=== PATIENT | female | born 1965 | race Caucasian/White ===

== ENCOUNTER 2016-12-07 07:31 | Day surgery (SDC) | payer BC ==
[2016-11-28 16:02] VITALS: BMI 27.1
--- OUTSIDE RECORDS SUMMARY | 2016-12-07 07:34 | XMS | Clinical Summary ---
:1965 Author Organization [facility] Address [address] [place] [address] Phone Care Team Providers Name Role Phone , Primary Care Provider Unavailable Allergies Not on File Current Medications Not on file Active Problems Not on file Social History Tobacco Use Types Packs/Day Years Used Date Never Assessed Sex Assigned at Date Recorded Not on file Last Filed Vital Signs Not on file Plan of Treatment Not on file Results Not on filefrom Last 3 Months
[2016-12-07] MEDS ORDERED: Bupivacaine HCl 0.5%/Epinephrine 1:200,000/PF 30 ml Vial ONE (08:55)
[2016-12-07] MEDS ORDERED: Midazolam HCl 2 mg/2 ml Vial ONE (09:03)
[2016-12-07] MEDS ORDERED: Fentanyl 100 MCG/2 ML VIAL ONE (09:03)
[2016-12-07] MEDS ORDERED: Diprivan 20 ML ONE (09:29)
--- NOTE | 2016-12-07 10:04 | OP ---
PREOPERATIVE DIAGNOSIS: Completed chemotherapy. SURGEON: Mike Johnson M.D. PROCEDURE PERFORMED: Removal of MediPort. INDICATIONS: This is a 51-year-old female who has completed chemotherapy and no longer requires a M ediPort. FINDINGS: Intact system removed. PROCEDURE: After informed consent was obtained, the patient was taken to the operating room and giv en total intravenous anesthesia, placed in supine position. The skin was prepped and draped in the usual fashion. Local anesthesia infiltrated subcutaneously and deep. A transverse incision perform ed through the old scar. Subcu divided sharply. The capsule incised. The sutures were removed. The MediPort removed. Hemostasis achieved with electrocautery. Subcutan eous reapproximated with interrupted 3-0 Vicryl. Skin closed with a running subcuticular 4-0 Rapide . Dermabond applied. The patient tolerated the procedure well and transferred to recovery in good condition. Sponge and needle count verified correct x2.
--- NOTE | 2016-12-07 12:36 | RAD ---
PORTABLE CHEST 1 VIEW: Date: 12/07/16 Time: 1051 hours HISTORY: 51-year-old female with MediPort removal. Lymphoma. FINDINGS: Comparison made with exam of 07/06/16. The right-sided Port-A-Cath has been removed in the interim. No pneumothorax is seen. The heart size is normal. The lungs are well expanded without confluent areas of consolidation or pleural effusion s. IMPRESSION: No acute process. POS: [facility]
--- NOTE | 2016-12-07 14:37 | CT ---
CT ANGIO OF CHEST PERFORMED WITH IV CONTRAST ENHANCEMENT AND 3D RECONSTRUCTIONS: Date: 12/07/16 HISTORY: Shortness of breath. Evaluation for PE post MediPort removal today. FINDINGS: The lungs are clear of any infiltrative process. There are no signs of pneumothorax or any pleural e ffusion. Thoracic aorta is normal in caliber. There is fairly good pulmonary artery opacification. There is no CT evidence for pulmonary embolus. Air within the soft tissue of the right chest would be consistent with MediPort removal. Visualized liver parenchyma shows suggestion of fatty change. Spleen appears borderline. There appea rs to be a diverticulum involving the posterior wall of the stomach. IMPRESSION: 1. No CT evidence of pulmonary embolus. 2. Fatty change of liver with borderline heart size. POS: [facility]
== END 2016-12-07 23:35 ==
LOC: SDC 07:31
PROVIDERS: ATTEND Surgery
PROC: 0JPV0XZ Removal of Tunneled Vascular Access Device from Upper Extremity Subcutaneous Tissue and Fascia, Open Approach (ICD-10-PCS; principal; 2016-12-07)
DX: Z45.2 Encounter for adjustment and management of vascular access device (principal); C85.90 Non-Hodgkin lymphoma, unspecified, unspecified site; I10 Essential (primary) hypertension; E78.5 Hyperlipidemia, unspecified; K21.9 Gastro-esophageal reflux disease without esophagitis; Z98.891 History of uterine scar from previous surgery; Z90.710 Acquired absence of both cervix and uterus; Z90.89 Acquired absence of other organs; Z83.3 Family history of diabetes mellitus; Z82.49 Family history of ischemic heart disease and other diseases of the circulatory system; Z88.8 Allergy status to other drugs, medicaments and biological substances; Z91.048 Other nonmedicinal substance allergy status; Z79.899 Other long term (current) drug therapy
CPT/HCPCS: 71010; 71275; J0670; J2250; J2704; J3010

== ENCOUNTER 2017-05-13 08:32 | Outpatient (CLI) | payer BC ==
[2017-05-13] MEDS ORDERED: Iopamidol 370 76% 100 ML VIAL ONE (16:03)
== END 2017-05-13 08:33 | disposition home or self-care (01) ==
LOC: BICCT 08:32
PROVIDERS: ATTEND Internal Medicine Hematology & Oncology
DX: C91.10 Chronic lymphocytic leukemia of B-cell type not having achieved remission (principal); I31.3 Pericardial effusion (noninflammatory); K76.0 Fatty (change of) liver, not elsewhere classified; K76.89 Other specified diseases of liver; R16.1 Splenomegaly, not elsewhere classified; R91.8 Other nonspecific abnormal finding of lung field
CPT/HCPCS: 71260; 74177

== ENCOUNTER 2017-07-16 11:07 | Outpatient (CLI) | payer BC ==
--- NOTE | 2017-07-16 13:59 | ULT ---
LEFT UPPER EXTREMITY VENOUS ULTRASOUND: COMPARISON: None. HISTORY: Left upper inner biceps redness and pain. TECHNIQUE: Multiplanar, garcia scale, and color Doppler images were obtained in a left upper extremity venous ultr asound. Spectral analysis of the Doppler waveforms was performed. FINDINGS: The left internal jugular vein demonstrates normal compression and flow without evidence of thrombus. The left subclavian vein demonstrates normal flow and augmentation without evidence of thrombus. T he left axial and brachial veins demonstrate normal compression, flow, and augmentation without evide nce of thrombus. The venous structures distal to the elbow are unremarkable. The basilic and cephalic veins are paten t without evidence of thrombus. IMPRESSION: No evidence of left upper extremity deep vein thrombosis. POS: [facility]
== END 2017-07-16 11:08 | disposition home or self-care (01) ==
LOC: ULT 11:07
PROVIDERS: ATTEND Internal Medicine Hematology & Oncology
DX: I82.90 Acute embolism and thrombosis of unspecified vein (principal); M79.89 Other specified soft tissue disorders; M79.602 Pain in left arm; C91.10 Chronic lymphocytic leukemia of B-cell type not having achieved remission; R59.1 Generalized enlarged lymph nodes
CPT/HCPCS: 36415; 80053

== ENCOUNTER 2017-08-30 12:42 | Outpatient (CLI) | payer BC ==
--- NOTE | 2017-08-30 13:39 | RAD ---
4 VIEWS CERVICAL SPINE: Date: 08/30/17 INDICATION: History of disc degenerative disease of the cervical spine. TECHNIQUE: Neutral lateral projection in addition to flexion and extension lateral projections of the spine were obtained. A swimmer's lateral projection was also obtained. FINDINGS: The cervical spine on the neutral lateral projection is evaluated to the superior aspect of C7. The c ervicothoracic junction is seen on the swimmer's lateral projection. There is reversal of the normal cervical lordosis. There is advanced disc degenerative disease at C5-6 and C6-7. Prevertebral soft ti ssues are normal appearing. No abnormal translational motion noted. IMPRESSION: 1. Moderate to severe multilevel spondylosis of the cervical spine. 2. No abnormal translational motion demonstrated. POS: [facility]
--- NOTE | 2017-08-30 13:56 | MRI ---
MR OF THE CERVICAL SPINE WITHOUT CONTRAST: Indication: Neck pain, extension of pain into left aspect of the left upper extremity for the last tw o years. Comparison: 10-19-15 Technique: Multiplanar, multisequence MR images were obtained of the cervical spine without IV contra st. FINDINGS: There is some reversal of the normal cervical lordosis which was present on the prior exam. Visualize d aspects of the posterior fossa appear within normal limits. Bone marrow signal intensity appears within normal limits. C2-3: There is moderate right and mild left facet joint degenerative change with a small central disc protrusion. The facet degenerative change appears to have progressed bilaterally, right greater than left. The facet hypertrophy induces mild right neural foraminal narrowing which is stable. C3-4: There is uncal vertebral hypertrophy and facet joint degenerative change and a broad based disc bulge. The broad based bulge induces mild central canal narrowing. There is moderate to severe right and mild left neural foraminal narrowing that has worsened since the prior exam, predominately due t o uncal vertebral hypertrophy. Mild central canal narrowing and mild left neural foraminal narrowing is stable. C4-5: There is a broad based disc bulge with a superimposed central disc protrusion causing moderate to severe central canal narrowing with mild effacement of the ventral spinal cord. There is uncal yannick tebral hypertrophy in addition to the broad based bulge and facet hypertrophy inducing moderate to se baudilio right sided neural foraminal narrowing which is stable. There is mild left neural foraminal narr owing which is stable. C5-6: There is a broad based disc bulge with facet hypertrophy and uncal vertebral hypertrophy induci ng mild central canal narrowing with mild ventral effacement of the spinal cord. This is stable to th e prior exam. There is stable mild bilateral foraminal narrowing, with asymmetric left uncal vertebra l hypertrophy inducing stable severe left neural foraminal narrowing. There is stable mild to moderat e central canal narrowing with mild ventral effacement of the spinal cord. There is mild to moderate right neural foraminal narrowing which is stable. C7-T1: There is no appreciable central canal or neural foraminal narrowing. IMPRESSION: Largely stable multilevel spondylosis of the cervical spine with multilevel neural foraminal and cent ral canal narrowing. The degree of neural foraminal narrowing has worsened at the C3-4 level where th ere is moderate to severe right neural foraminal narrowing. POS: [facility]
== END 2017-08-30 12:43 | disposition home or self-care (01) ==
LOC: TBSIIMAG 12:42
PROVIDERS: ATTEND Neurological Surgery
DX: M47.892 Other spondylosis, cervical region (principal); M50.30 Other cervical disc degeneration, unspecified cervical region; M48.02 Spinal stenosis, cervical region; M99.81 Other biomechanical lesions of cervical region
CPT/HCPCS: 72040; 72141

== ENCOUNTER 2017-10-09 12:27 | Outpatient (CLI) | payer BC ==
--- NOTE | 2017-10-09 14:14 | MMO ---
BILATERAL DIGITAL SCREENING MAMMOGRAMS: Date: 10/09/17 HISTORY: 52-year-old female presents for digital screening mammogram. COMPARISON: 12/21/15, 12/31/13. FINDINGS: This patient's mammogram was interpreted with the assistance of computer-aided detection. Scattered areas of fibroglandular density are noted bilaterally. No direct or indirect evidence of ma lignancy. IMPRESSION: BIRADS 1: Negative Continue routine screening. POS: [facility]
== END 2017-10-09 12:28 | disposition home or self-care (01) ==
LOC: SCSMAMMO 12:27
PROVIDERS: ATTEND Family Medicine
DX: Z12.31 Encounter for screening mammogram for malignant neoplasm of breast (principal)
CPT/HCPCS: 77067

== ENCOUNTER 2017-10-10 13:45 | Outpatient (CLI) | payer BC ==
[2017-10-10 15:03] LABS: Hemoglobin 12.4 g/dL (12.0-16.0); Mean Corpuscular HGB CONC 33.4 g/dL (32.0-36.0); Mean Corpuscular Hemoglobin 27.5 pg (27.0-31.0); Mean Corpuscular Volume 82.3 fL (78.0-98.0); Mean Platelet Volume 8.4 fL (7.4-10.4); Platelet Count 191 thou/uL (130-400); RBC Distribution Width 12.8 % (11.5-14.5); White Blood Cell (WBC) Count 7.1 thou/uL (4.8-10.8)
[2017-10-10 15:08] LABS: PTT 26.3 SEC (22.9-36.1); Prothrombin Time 13.7 SEC (12.0-14.7)
== END 2017-10-10 13:46 | disposition home or self-care (01) ==
LOC: LABBT 13:45
PROVIDERS: ATTEND Neurological Surgery
DX: Z01.818 Encounter for other preprocedural examination (principal); M50.00 Cervical disc disorder with myelopathy, unspecified cervical region
CPT/HCPCS: 85027; 85610; 85730; 93005; 93010

== ENCOUNTER 2017-12-24 14:52 | Outpatient (CLI) | payer BC ==
--- NOTE | 2017-12-24 16:30 | RAD ---
CERVICAL SPINE RADIOGRAPHS 4 VIEWS: DATE: 12/24/2017. PROVIDED CLINICAL HISTORY: Followup surgery. FINDINGS: Comparison 08/30/2017. Interval ACDF changes from C4 through C7. No evidence for hardware loosening or migration. Mild prominence of the prevertebral soft tissues. Cervical alignment appears normal. Vertebral body heights appear preserved. Facet degenerative changes are seen. The visualized lung apices appear clear. IMPRESSION: As above. POS: [facility]
== END 2017-12-24 14:53 | disposition home or self-care (01) ==
LOC: TBSIIMAG 14:52
PROVIDERS: ATTEND Neurological Surgery
DX: M50.10 Cervical disc disorder with radiculopathy, unspecified cervical region (principal); M47.22 Other spondylosis with radiculopathy, cervical region; Z98.1 Arthrodesis status
CPT/HCPCS: 72040

== ENCOUNTER 2018-02-20 09:50 | Outpatient (CLI) | payer BC ==
--- NOTE | 2018-02-20 12:11 | CT ---
CT CHEST WITH IV CONTRAST: CT ABDOMEN AND PELVIS WITH IV AND ORAL CONTRAST: HISTORY: Chronic lymphocytic leukemia, B cell. Restaging. COMPARISON: 05/13/2017 FINDINGS: The lungs are well inflated. The tiny nodules on the prior CT from 05/13/2017 are not visible on tod ay's exam. No new nodules. No pericardial fluid or thickening. Tiny lymph node along the anterior margin of the cardiac apical pericardium is stable. No enlarged lymph nodes are evident within the mediastinum. In the retroperitoneum, the lymph nodes that were previously enlarged are now of normal size, none greater than 1 cm in short axis diameter. Axillary lymph nodes have a normal appearance. There is calcification in the coronary arteries. The vascular lesion along the lateral margin of the posterior segment right liver lobe and the liver cysts are stable. The urinary bladder is incompletely distended. IMPRESSION: 1. Interval resolution of the retroperitoneal adenopathy, tiny lung nodules, and pericardial fluid. No new abnormalities are evident. 2. Atherosclerosis. POS: [facility]
== END 2018-02-20 09:51 | disposition home or self-care (01) ==
LOC: BICCT 09:50
PROVIDERS: ATTEND Internal Medicine Hematology & Oncology
DX: C91.10 Chronic lymphocytic leukemia of B-cell type not having achieved remission (principal); R59.1 Generalized enlarged lymph nodes; I70.90 Unspecified atherosclerosis; R91.8 Other nonspecific abnormal finding of lung field
CPT/HCPCS: 71260; 74177

== ENCOUNTER 2018-08-12 14:45 | Outpatient (CLI) | payer BC ==
--- NOTE | 2018-08-12 17:20 | CT ---
CT OF THE ABDOMEN AND PELVIS WITH IV CONTRAST INDICATION: Chemotherapy with right lower quadrant abdominal pain COMPARISON: CT of the chest, abdomen and pelvis dated February 20, 2018 and May 13, 2017. Comparison is also made with abdominal CT dated February 13, 2011. FINDINGS: ABDOMEN: Lung bases: Clear Liver: There is a stable 3.1 cm right hepatic hemangioma. There are stable cysts within the right hep atic lobe tip as well as scattered within the left hepatic lobe. There is a new enhancing 1.6 cm lesion within the left hepatic lobe on image 15 of series 2 that was not present on comparison exams. Gallbladder: Normal appearing. Pancreas: Normal. Adrenal glands: Normal. Spleen: Normal. Kidneys: Normal. Retroperitoneum of the upper abdomen: No lymphadenopathy or free fluid is identified. Pelvis: Small and large bowel: There is wall thickening with pericolonic inflammatory stranding involving the cecum. No drainable fluid collection is evident. There is a normal appendix in the right lower quadrant. Bladder: Normal. Rectal and perirectal soft tissues:Normal. Reproductive structures: Surgically absent Free fluid in pelvis: There is mild free fluid. Lymphadenopathy pelvis: No lymphadenopathy is evident. Osseous structures: No acute osseous abnormality. No destructive osteolytic or osteoblastic lesion i s identified. There is scattered degenerative and osteoarthritic changes. IMPRESSION: 1. Findings suspicious for typhlitis. Findings called to Dr. Godwin's answering service at 5:15 PM on August 12, 2018. 2. New enhancing lesion within the medial left hepatic lobe requires further evaluation. A CT of the abdomen utilizing hemangioma protocol is recommended for further characterization. There is a stable right hepatic lobe hemangioma and stable hepatic cysts present. 3. Mild free fluid in the pelvis.
== END 2018-08-12 14:46 | disposition home or self-care (01) ==
LOC: CT 14:45
PROVIDERS: ATTEND Family Medicine
DX: R10.31 Right lower quadrant pain (principal); R19.7 Diarrhea, unspecified; D18.03 Hemangioma of intra-abdominal structures; K76.89 Other specified diseases of liver
CPT/HCPCS: 74177

== ENCOUNTER 2018-08-12 19:48 | Inpatient (IN) | payer BC ==
[2018-08-12 20:35] LABS: Hemoglobin 13.4 g/dL (12.0-16.0); Mean Corpuscular HGB CONC 33.6 g/dL (32.0-36.0); Mean Corpuscular Hemoglobin 26.7 pg (27.0-31.0); Mean Corpuscular Volume 79.6 fL (78.0-98.0); Mean Platelet Volume 9.5 fL (7.4-10.4); Platelet Count 181 thou/uL (130-400); RBC Distribution Width 12.8 % (11.5-14.5); Red Blood Cell (RBC) Count 5.03 mill/uL (4.20-5.40); White Blood Cell (WBC) Count 7.7 thou/uL (4.8-10.8)
[2018-08-12 20:48] LABS: Band 6 % (5-11); Lymphocytes 29 % (21-51); MDiff Complete? YES; Monocytes 3 % (0-10); Neutrophil 62 % (42-75); Platelet Morphology Comment Appears Adequate; RBC Morphology Normal
[2018-08-12 20:48] LABS: Bilirubin Negative (Negative); Blood, Urine Negative (Negative); Clarity CLEAR (Clear); Glucose, Urine (Dipstick) Negative (Negative); Leukocyte Negative (Negative); Nitrite Negative (Negative); Protein, Urine (Dipstick) Negative (Neg-Trace); Specific Gravity, Urine 1.013 (1.002-1.036); Urobilinogen 0.2 mg/dL (0.2-1.0)
[2018-08-12 20:51] LABS: ALT (SGPT) 15 U/L (8-55); AST (SGOT) 18 U/L (5-34); Albumin 4.3 g/dL (3.5-5.0); Alkaline Phosphatase 60 U/L (40-150); Anion Gap 15 mmol/L (10-20); BUN (Urea Nitrogen) 11 mg/dL (9.8-20.1); Bilirubin, Total 0.9 mg/dL (0.2-1.2); Calc. Creatinine Clearance 0 mL/min (70-130); Calcium 9.8 mg/dL (7.8-10.44); Carbon Dioxide 26 mmol/L (22-29); Chloride 99 mmol/L (98-107); Estimated GFR-MDRD 83; Globulin 2.8 g/dL (2.4-3.5); Glucose 82 mg/dL (70-105); Potassium 3.6 mmol/L (3.5-5.1); Protein, Total 7.1 g/dL (6.0-8.3); Sodium 136 mmol/L (136-145)
[2018-08-12] MEDS ORDERED: Piperacillin/Tazobactam 4.5 GM VIAL ONE (21:29)
[2018-08-12] MEDS ORDERED: Ondansetron PF 4 MG/2 ML Vial ONE (22:21)
[2018-08-12] MEDS ORDERED: Morphine 4 MG/ML VIAL ONE (22:21)
[2018-08-12] MEDS ORDERED: Acetaminophen 325 MG TAB PO PRN (23:00)
[2018-08-12] MEDS ORDERED: Ondansetron PF 4 MG/2 ML Vial IVP PRN (23:00)
[2018-08-12] MEDS ORDERED: Ondansetron ODT 4 MG TAB PO PRN (23:00)
[2018-08-13] MEDS ORDERED: Sodium Chloride 0.9% 1,000 ML IV SCH (01:00)
[2018-08-13 01:34] VITALS: BMI 29.7
--- NOTE | 2018-08-13 02:02 | HP ---
PRIMARY CARE PHYSICIAN: No PCP reported. CODE STATUS: Full code. TIME OF EVALUATION: 10:20 p.m. CHIEF COMPLAINT: Diarrhea. HISTORY OF PRESENT ILLNESS: A 52-year-old female patient with past medical history of hyperlipidemia, hypertension, and leukemia, came to the hospital after having hematochezia onset four days ago and diarrhea, the episode has been going on for the past few days, multiple times every day with no clear triggers, no alleviating factors associated with lower abdominal pain. Pain is sharp, 5/10. Symptoms started insidiously and had been gradually worsened. REVIEW OF SYSTEMS: CONSTITUTIONAL: No fever, chills, or generalized weakness. RESPIRATORY: No cough, sputum production, or shortness of breath. CARDIOVASCULAR: No chest pain or palpitation. GASTROINTESTINAL: The patient has no nausea or vomiting. Diarrhea and abdominal pain. TRANSPORTATION JOB TITLES: No dizziness, headache, or feeling lightheaded. GENITOURINARY: No burning urination. EXTREMITIES: No leg swelling. All other systems were reviewed and negative except for the findings mentioned above. PAST MEDICAL HISTORY: As mentioned in the HPI. PAST SURGICAL HISTORY: She has a history of tonsillectomy, x2, hysterectomy, and tubal ligation. PSYCHIATRIC HISTORY: No previous psych history. SOCIAL HISTORY: The patient smokes one pack per day. No alcohol. No drug use. FAMILY HISTORY: Noncontributory to this case. KNOWN ALLERGIES: To adhesive, lisinopril, olmesartan, and Steri-Strips. REPORTED MEDICATIONS: 1. Amlodipine. 2. Crestor. 3. Pantoprazole. 4. Florastor. 5. Loratadine. 6. Imbruvica. PHYSICAL EXAMINATION: VITAL SIGNS: On presentation; blood pressure 144/81 with heart rate 96, respiratory rate was 18, temperature 98.6, and oxygen saturation was 98% on room air. GENERAL APPEARANCE: The patient is alert, oriented, not in acute distress. HEENT: Eyes, normal conjunctivae. Moist oral mucosa. Anicteric. No JVD. RESPIRATORY: Bilateral air entry. No rales. No wheezes. Symmetric expansion. CARDIOVASCULAR: Normal rate. Regular rhythm. No murmurs. No gallop. No edema. ABDOMEN: Soft. Normal bowel sounds. The patient has lower abdominal tenderness. MUSCULOSKELETAL: Baseline range of motion and strength. No tenderness. SKIN: Warm, intact. No pallor. No rash. No redness. Peripheral pulses are present. Capillary refill seems to be intact. NEURO: No evidence of any new focal weakness. Cranial nerves seem to be intact. PSYCH: The patient is in good mood. No anxiety. Optimal judgment. IMAGING DATA: CT report as per Radiology showed left hepatic lobe lesion, stable right hepatic hemangioma and cyst, mild free fluid in pelvis, findings suspicious for typhlitis. LABORATORY DATA: Reviewed. The patient has white count 7.7, hemoglobin 13.4, MCV 79.6 with platelet count 181. Chemistry; sodium 136, potassium 3.6, chloride 99 , carbon dioxide 26, anion gap 15, BUN 11, and creatinine 0.73. LFTs were negative. Urine was negative. ASSESSMENT AND PLAN: The patient will be placed in the hospital with following medical problems: 1. Possible typhilitis. The patient has CT findings for this condition; however , she is not neutropenic. Also, she has chronic lymphocytic leukemia. We will continue Zosyn for now. We will continue with some IV fluids. The patient is willing to eat, so we might start some clear liquids in the morning and watch for tolerance. There are no complications seen on the CT from this entity. 2. CLL- pt on chemo - PO, will reconcile and monitor blood count. 3. Uncontrolled HTN, we will reconcile home meds and adjust as needed. 4. DVT prophylaxis 5. Hyperlipidemia- low cholesterol diet is advised, reconcile home meds. Job ID: [id number] MTDD
[2018-08-13 02:06] LABS: Hemoglobin 11.3 g/dL (12.0-16.0); Mean Corpuscular Hemoglobin 26.5 pg (27.0-31.0); Mean Corpuscular Volume 80.2 fL (78.0-98.0); Mean Platelet Volume 8.8 fL (7.4-10.4); Platelet Count 144 thou/uL (130-400); RBC Distribution Width 12.7 % (11.5-14.5); Red Blood Cell (RBC) Count 4.27 mill/uL (4.20-5.40); White Blood Cell (WBC) Count 9.6 thou/uL (4.8-10.8)
[2018-08-13 02:12] LABS: PTT 27.1 SEC (22.9-36.1); Prothrombin Time 13.5 SEC (12.0-14.7)
[2018-08-13 02:28] LABS: Band 5 % (5-11); Hypochromia SLIGHT = 6-15 cells (100X) (0-5/hpf); Lymphocytes 11 % (21-51); MDiff Complete? YES; Monocytes 5 % (0-10); Neutrophil 77 % (42-75); Platelet Morphology Comment Appears Adequate; Reactive Lymphocytes 2 % (0-10)
[2018-08-13 02:30] LABS: Anion Gap 11 mmol/L (10-20); BUN (Urea Nitrogen) 8 mg/dL (9.8-20.1); Calc. Creatinine Clearance 124 mL/min (70-130); Calcium 8.6 mg/dL (7.8-10.44); Carbon Dioxide 27 mmol/L (22-29); Chloride 103 mmol/L (98-107); Estimated GFR-MDRD Greater than 90; Glucose 95 mg/dL (70-105); Potassium 3.4 mmol/L (3.5-5.1); Sodium 138 mmol/L (136-145)
[2018-08-13] MEDS ORDERED: Piperacillin/Tazobactam 4.5 GM in Sodium Chloride 0.9% 100 ML IVPB SCH (06:00)
[2018-08-13 08:59] LABS: Magnesium 1.4 mg/dL (1.6-2.6); Phosphorus 3.8 mg/dL (2.3-4.7)
[2018-08-13] MEDS ORDERED: Enoxaparin Sodium 40 MG/0.4 ML SYRINGE SC SCH (09:00)
[2018-08-13] MEDS: cefTRIAXone\\ROCEPHIN 1 GM in Sodium Chloride 0.9% 100 ML IVPB SCH (09:50)
[2018-08-13] MEDS: NS 0.9% w/ 20 MEQ KCL 1,000 ML/1,000 ML BAG IV SCH ×3 (09:53→20:57)
[2018-08-13] MEDS ORDERED: Magnesium Sulfate 4 GM in Sodium Chloride 0.9% 250 ML 250 ML IVPB SCH (10:00)
[2018-08-13] MEDS ORDERED: Potassium Chloride 20 MEQ TAB PO SCH ×2 (10:00→17:00)
[2018-08-13] MEDS: metroNIDAZOLE 500 MG in Premix Bag 1 BAG IVPB SCH ×2 (14:48→20:56)
--- NOTE | 2018-08-13 18:35 | PRG ---
DATE OF SERVICE: 08/13/2018 SUMMARY: A 52-year-old female with chronic lymphoid leukemia on chemotherapy, presented with diarrhea along with abdominal discomfort. SUBJECTIVE: Diarrhea is improving. She also has improvement in abdominal pain. She denies any nausea or vomiting. No fever or chills reported. REVIEW OF SYSTEMS: The patient denies any chest pain, shortness of breath, palpitations, or focal deficits. OBJECTIVE: VITAL SIGNS: Temperature 98.3, pulse 89, blood pressure 102/69, respirations of 18, O2 saturation 96% on room air. GENERAL: A 52-year-old female in no apparent distress. LUNGS: Clear to auscultation bilaterally. No wheezing, rales, rhonchi. HEART: S1, S2 present. Regular rate and rhythm. No heaves or pulsation. ABDOMEN: Soft, mild tenderness in the lower quadrant. No rebound or guarding. EXTREMITIES: No edema or calf tenderness. NEUROLOGIC: Grossly nonfocal. Current medications were reviewed. The patient is on IV fluids and antibiotics. LABORATORY FINDINGS: WBC 9.6, hemoglobin 11.3, hematocrit 34.2, platelet count of 144. PT, INR, PTT in normal range. Magnesium 1.4, potassium 3.4, BUN 8, creatinine 0.67. Stool workup has been ordered. Sample yet to be collected. CT scan of the abdomen by my review showed findings suspicious for typhilitis with new enhancing lesion within the medial left hepatic lobe. IMPRESSION: 1. Acute typhilitis. Possibilities include infectious versus ischemic versus chemotherapy-induced. 2. Chronic lymphoid leukemia, on chemotherapy. 3. Hypertension. The patient is hypotensive at this time. 4. New enhancing lesion within the medial left hepatic lobe. Primary care physician advised to follow. She will require a CT scan of the abdomen utilizing hemangioma protocol. 5. Hyperlipidemia. 6. Hypokalemia and hypomagnesemia. PLAN: We will change antibiotics to ceftriaxone and Flagyl. We will adjust IV fluids. We will add potassium to IV fluids. Replace potassium and magnesium. Restart home medications. We will resume amlodipine at low dose. Continue current diet. Recheck labs in a.m. Resume probiotic. Plan of care was discussed with the patient and the family at the bedside. They stated understanding. Job ID: [id number]
[2018-08-13] MEDS: Amlodipine 5 MG TAB PO SCH (20:56)
[2018-08-13] MEDS ORDERED: Rosuvastatin 20 MG TAB PO SCH (21:00)
[2018-08-14 05:48] LABS: Anion Gap 9 mmol/L (10-20); BUN (Urea Nitrogen) Less than 4 mg/dL (9.8-20.1); Calc. Creatinine Clearance 151 mL/min (70-130); Calcium 8.4 mg/dL (7.8-10.44); Carbon Dioxide 26 mmol/L (22-29); Chloride 108 mmol/L (98-107); Estimated GFR-MDRD Greater than 90; Glucose 99 mg/dL (70-105); Potassium 3.5 mmol/L (3.5-5.1); Sodium 139 mmol/L (136-145)
[2018-08-14] MEDS: metroNIDAZOLE 500 MG in Premix Bag 1 BAG IVPB SCH ×2 (06:07→15:08)
[2018-08-14] MEDS: NS 0.9% w/ 20 MEQ KCL 1,000 ML/1,000 ML BAG IV SCH (06:07)
[2018-08-14] MEDS ORDERED: Saccharomyces boulardii 250 MG CAP PO SCH (09:00)
[2018-08-14] MEDS ORDERED: Loratadine 10 MG TAB PO SCH (09:00)
[2018-08-14] MEDS: cefTRIAXone\\ROCEPHIN 1 GM in Sodium Chloride 0.9% 100 ML IVPB SCH (09:03)
[2018-08-14] MEDS: Amlodipine 5 MG TAB PO SCH (09:04)
--- NOTE | 2018-08-14 11:34 | CON ---
DATE OF CONSULTATION: 08/13/2018 REASON FOR CONSULTATION: Abdominal pain and bloody stool. HISTORY OF PRESENT ILLNESS: Ms. Barbour is a 52-year-old female who was in her usual state of health until 5 days ago, when she noted low abdominal pain, described as a cramping in nature that turned into a dull ache. She also had associated diarrhea that became more bloody within the last 3 days. She denies any fever. She did have some nausea, but without any actual vomiting. She denies having any antecedent travel or antibiotic usage. Currently, the pain is less. She only had one loose bowel movement this morning only, but still with some blood. CT scan performed in the ER demonstrated cecal inflammatory changes. There is no evidence of obstruction. There is no other complicated findings such as abscess, phlegmon, or any kind of fluid collection. She does have chronic lymphocytic leukemia and has been on medication for the last one year without any side effects. The patient had an outpatient colonoscopy by Dr. Everton Boone in 2016 with 2 hyperplastic polyps removed in the sigmoid colon, but otherwise normal. PAST MEDICAL HISTORY: 1. Hypertension. 2. Hyperlipidemia. 3. CLL. 4. Status post tonsillectomy. 5. Status post x2. 6. Status post hysterectomy. SOCIAL HISTORY: The patient is . She does smoke a pack a day. There is no alcohol usage. FAMILY HISTORY: Negative for any known GI problem, liver disease, or GI malignancy. ALLERGIES: TO TAPE, LISINOPRIL, AND OLMESARTAN. MEDICATIONS AT HOME: 1. Pantoprazole. 2. Rosuvastatin. 3. Claritin. 4. Amlodipine. 5. Ibrutinib. 6. Florastor. PHYSICAL EXAMINATION: VITAL SIGNS: Temperature is 96.9, blood pressure 109/68, and pulse of 89. GENERAL: She is alert, conversant, in no distress. HEENT: Anicteric sclerae. Oropharynx is clear and moist. NECK: Supple. CV: Normal S1 and S2. Regular rate and rhythm. CHEST: Breath sounds. ABDOMEN: Soft, tender mostly in the infraumbilical area and also right lower quadrant. There is mild guarding, but no rebound. She has active bowel sounds. EXTREMITIES: No edema. LABORATORY DATA: WBC is 9.6, hemoglobin 11.3, and MCV of 80, and platelet count 144. Electrolytes within normal range. LFTs are normal. DIAGNOSTIC DATA: Abdominopelvic CT showed mural thickening involving the cecum with pericecal colonic inflammation. ASSESSMENT: The patient most likely has ischemic colitis manifesting with abdominal pain and bloody stool. The symptoms are resolving. I doubt that she has typhlitis as the patient is not neutropenic. She had a colonoscopy 2-1/2 years ago that did not show any other significant problem or issues. Her current symptoms are improving. RECOMMENDATIONS: 1. No intervention is indicated at the present time. 2. Advance diet. If she can tolerate diet and with continued improvement in her abdominal pain and resolution of bloody stool, the patient can be discharged to home without any antibiotics. 3. Followup in GI Clinic in 2 to 3 weeks, we will continue to follow the patient in-house. Job ID: [id number]
[2018-08-14] MEDS ORDERED: NS 0.9% w/ 20 MEQ KCL 1,000 ML/1,000 ML BAG IV SCH (11:46)
--- NOTE | 2018-08-14 13:09 | PRG ---
DATE OF SERVICE: 08/14/2018 SUBJECTIVE: The patient feels much better today. She has minimal right lower abdominal pain. She is tolerating diet without nausea or vomiting. She has had less diarrhea without blood. PHYSICAL EXAMINATION: VITAL SIGNS: Temperature is 98.3, blood pressure 108/70, pulse of 90. GENERAL: She is alert, conversant, in no distress. HEENT: Exam shows anicteric sclerae. Oropharynx is moist. CV: Exam shows normal S1 and S2. Regular rate and rhythm. CHEST: Exam shows a breath sound. ABDOMEN: Mildly protuberant, but no distention. No tympany. She has active bowel sounds. Essentially no tenderness to palpation. EXTREMITIES: Exam shows no edema. LABORATORY DATA: Sodium 139, potassium 3.5, chloride 108, CO2 is 26, creatinine 0.55. Blood culture negative at 2 days. C diff negative. Campylobacter antigen negative. She is positive for fecal lactoferrin and E coli shiga toxin 1. ASSESSMENT: Right lower quadrant pain associated with bloody diarrhea with cecal inflammation seen on CT. I suspect she has ischemic colitis that is now resolving. Shiga toxin noted on stool studies is being further investigated for confirmation. However, I suspect this is a false positive. Even if she were to have Escherichia coli infection, clinically she is doing much better. RECOMMENDATIONS: 1. No other GI test or evaluation is indicated. 2. The patient can be discharged from GI standpoint with outpatient followup in about a month. Job ID: [id number]
[2018-08-14 16:39] VITALS: BP 110/74; TEMP 98.2
--- NOTE | 2018-08-14 19:10 | DIS ---
DATE OF ADMISSION: 08/12/2018 DATE OF DISCHARGE: 08/14/2018 DISCHARGE DISPOSITION: Home. FOLLOWUP: 1. Follow up with primary care physician, Dr. Joe Godwin in 1 week. 2. Follow up with Oncology as scheduled. 3. Follow up with Gastroenterology, Dr. Humphries, in 2 weeks. ALLERGIES: THE PATIENT IS ALLERGIC TO LISINOPRIL AND OLMESARTAN. DISCHARGE MEDICATIONS: 1. Flagyl 500 mg three times daily for next 3 days. 2. Omnicef 300 mg b.i.d. for next 3 days. All other home medications were left unchanged. BRIEF HOSPITAL COURSE: The patient is a 52-year-old female with chronic lymphoid leukemia, currently on ibrutinib, presented to the emergency room with abdominal discomfort along with diarrhea. Please refer to the history and physical for further details. The patient was admitted to the hospital with a diagnosis of acute typhlitis. CT scan of the abdomen prior to admission showed wall thickening with pericolonic inflammatory standing involving the cecum. She was started on IV fluids along with liquid diet and antibiotics. The stool workup was essentially negative except for fecal lactoferrin positive. Shiga toxin type 1 was positive. However, this is probably false-positive per human relations manager. Blood culture remained negative. Stool for C. diff was negative. Diarrhea has significantly improved. She is tolerating regular diet. She has been cleared by Gastroenterology for discharge. FINAL DIAGNOSES: 1. Acute typhlitis/suspected ischemic colitis. 2. Chronic lymphoid leukemia, on chemotherapy. 3. Hypertension. 4. Hyperlipidemia. 5. Hypokalemia, replaced. 6. Hypomagnesemia, replaced. 7. New enhancing lesion within the medial left hepatic lobe. Primary care physician advised to follow. Radiology recommended a CT scan of the abdomen utilizing hemangioma protocol. Plan was discussed with the patient in detail and she stated understanding. Job ID: [id number]
== END 2018-08-14 16:15 | disposition home or self-care (01) | DRG 394 ==
LOC: ERS 19:48 → T4-A 23:20
PROVIDERS: ADMIT Hospitalist; ATTEND Hospitalist
DX: K37 Unspecified appendicitis (principal); C91.10 Chronic lymphocytic leukemia of B-cell type not having achieved remission; K55.9 Vascular disorder of intestine, unspecified; E78.5 Hyperlipidemia, unspecified; E83.42 Hypomagnesemia; I10 Essential (primary) hypertension; F17.210 Nicotine dependence, cigarettes, uncomplicated; K76.9 Liver disease, unspecified; E87.6 Hypokalemia; Z91.048 Other nonmedicinal substance allergy status; Z90.49 Acquired absence of other specified parts of digestive tract; Z98.51 Tubal ligation status; Z88.8 Allergy status to other drugs, medicaments and biological substances
CPT/HCPCS: 36415; 74177; 80048; 80053; 81003; 83605; 83630; 83735; 84100; 85025; 85610; 85730; 87040; 87045; 87046; 87081; 87324; 87328; 87329; 87449; 87899; 96361; 96365; 96375; J0696; J2270; J2405; J2543; J3475; J3480; J3490; J7050

== ENCOUNTER 2018-09-05 12:44 | Outpatient (CLI) | payer BC ==
[~2018-09-05 12:44] MED LIST: Iopamidol 370 76% 100 ML VIAL ONE
--- NOTE | 2018-09-05 15:08 | CT ---
CT ABDOMEN WITH AND WITHOUT IV CONTRAST USING HEMANGIOMA PROTOCOL: Date: 09/05/18 HISTORY: Liver hemangioma. Leukemia COMPARISON: 08/12/18 and 02/20/18. FINDINGS: 3.0 cm right liver lobe mass with peripheral nodular enhancement and centripetal filling is stable co nsistent with hemangioma. Cysts in the liver are again seen, the largest measuring about 2.5 cm in th e inferior aspect of the right lobe of the liver. A 1.5 cm enhancing lesion in the left hepatic lobe seen on the arterial phase images only is stable since 08/12/18. The spleen, pancreas, adrenal glands, and kidneys are normal. No free air, free fluid, or lymphadenop athy seen in the abdomen. There are vascular calcifications without evidence of aneurysmal dilatation of the abdominal aorta. No calcified gallstones are seen. There are degenerative changes in the spin e. IMPRESSION: 1. Hepatic cysts. 2. Hepatic hemangioma. 3. 1.5 cm hypervascular lesion in the left lobe of the liver. Differential diagnosis includes adenom a, FNH, and hypervascular metastasis. POS: RAUL
== END 2018-09-05 12:45 | disposition home or self-care (01) ==
LOC: BICCT 12:44
PROVIDERS: ATTEND Family Medicine
DX: D18.03 Hemangioma of intra-abdominal structures (principal); K76.89 Other specified diseases of liver
CPT/HCPCS: 74170

== ENCOUNTER 2018-11-13 09:14 | Outpatient (CLI) | payer BC ==
--- NOTE | 2018-11-13 10:11 | CT ---
CT Abdomen Pelvis W Con: 11/13/2018 12:00 AM CLINICAL INFORMATION: Liver mass, leg swelling. History of leukemia COMPARISON: 08/12/2018 TECHNIQUE: Multiple contiguous axial images were obtained and a CT of the abdomen and pelvis with IV contrast. Oral contrast was administered. Coronal reformats were performed. FINDINGS: Lower Chest: within normal limits. Abdomen: Liver: There is a stable hypodense mass in the right lobe with central hyperdensity. There is a stabl e bilobed cyst in the inferior tip of the right lobe of the liver. Other smaller subcentimeter hypodensities are too small to definitely characterize but likely represent cysts. Bile Ducts: Normal caliber. Gallbladder: No calcified gallstones. Normal caliber wall. Pancreas: within normal limits. Spleen: within normal limits. Adrenals: within normal limits. Kidneys: within normal limits. Pelvis: Reproductive Organs: Post hysterectomy Ureters: within normal limits. Bladder: within normal limits. Peritoneum: No ascites or free air, no fluid collection. Bowel: Normal caliber. Normal appendix. Mesentery and Retroperitoneum: No enlarged mesenteric or retroperitoneal lymph nodes. Vessels: Atherosclerotic calcifications. Abdominal Wall: within normal limits. Bones: A stable well-circumscribed sclerotic region in the right iliac bone adjacent to the right hip joint likely represents a bone island. IMPRESSION: Stable exam
[2018-11-13] MEDS ORDERED: ISOVUE-370 76%-LOCM 1 ML ONE (17:14)
== END 2018-11-13 09:15 | disposition home or self-care (01) ==
LOC: BICCT 09:14
PROVIDERS: ATTEND Internal Medicine Hematology & Oncology
DX: C91.10 Chronic lymphocytic leukemia of B-cell type not having achieved remission (principal); R59.1 Generalized enlarged lymph nodes
CPT/HCPCS: 74177; Q9966

== ENCOUNTER 2018-12-01 08:22 | Emergency (ER) | payer BC ==
[2018-12-01 09:06] LABS: #Eosinphils 0.1 thou/uL (0.0-0.7); #Lymphocytes 1.9 thou/uL (1.20-3.40); #Monocytes 0.7 thou/uL (0.11-0.59); #Neutrophils 2.4 thou/uL (1.40-6.50); %Basophils 0.5 % (0.0-1.0); %Eosinophils 1.6 % (0.0-10.0); %Lymphocytes 38.1 % (21.0-51.0); %Monocytes 12.7 % (0.0-10.0); %Neutrophils 47.1 % (42.0-75.0); Hemoglobin 12.9 g/dL (12.0-16.0); Mean Corpuscular HGB CONC 33.2 g/dL (32.0-36.0); Mean Corpuscular Volume 78.5 fL (78.0-98.0); Mean Platelet Volume 8.8 fL (7.4-10.4); Platelet Count 182 thou/uL (130-400); RBC Distribution Width 13.6 % (11.5-14.5); Red Blood Cell (RBC) Count 4.93 mill/uL (4.20-5.40); White Blood Cell (WBC) Count 5.1 thou/uL (4.8-10.8)
[2018-12-01 09:28] LABS: ALT (SGPT) 25 U/L (8-55); AST (SGOT) 24 U/L (5-34); Albumin 4.5 g/dL (3.5-5.0); Alkaline Phosphatase 63 U/L (40-150); Anion Gap 11 mmol/L (10-20); BUN (Urea Nitrogen) 7 mg/dL (9.8-20.1); Bilirubin, Total 0.6 mg/dL (0.2-1.2); Calc. Creatinine Clearance 0 mL/min (70-130); Calcium 9.6 mg/dL (7.8-10.44); Carbon Dioxide 29 mmol/L (22-29); Chloride 104 mmol/L (98-107); Estimated GFR-MDRD 89; Globulin 2.7 g/dL (2.4-3.5); Glucose 104 mg/dL (70-105); Potassium 3.8 mmol/L (3.5-5.1); Protein, Total 7.2 g/dL (6.0-8.3); Sodium 140 mmol/L (136-145)
--- NOTE | 2018-12-01 09:43 | ULT ---
EXAM: RIGHT LOWER EXTREMITY DOPPLER VENOUS ULTRASOUND PROVIDED CLINICAL HISTORY: Right lower extremity pain TECHNIQUE: Grayscale and color Doppler sonography with spectral analysis was performed of the right common femor al, femoral, popliteal, posterior tibial, greater saphenous and profunda femoral veins. FINDINGS: There is normal compression, flow and augmentation seen within the deep venous structures o f the right lower extremity. IMPRESSION: No sonographic evidence for right lower extremity deep venous thrombosis.
== END 2018-12-01 10:55 | disposition home or self-care (01) ==
LOC: ERS 08:22
DX: I88.9 Nonspecific lymphadenitis, unspecified (principal); E78.5 Hyperlipidemia, unspecified; I10 Essential (primary) hypertension; F17.290 Nicotine dependence, other tobacco product, uncomplicated; Z79.899 Other long term (current) drug therapy
CPT/HCPCS: 36415; 80053; 83880; 85025

== ENCOUNTER 2018-12-10 14:08 | Outpatient (CLI) | payer BC ==
--- NOTE | 2018-12-10 14:52 | ULT ---
EXAM: Bilateral lower extremity venous duplex: Deep veins evaluated with color Doppler, spectral analysis, and compression. INDICATIONS: Bilateral lower extremity edema. FINDINGS: Deep veins interrogated include common femoral vein, femoral vein, popliteal vein, and post erior tibial vein. These veins show normal compression and blood flow. No evidence of DVT. IMPRESSION: Negative Bilateral venous duplex exam.
== END 2018-12-10 14:09 | disposition home or self-care (01) ==
LOC: BICULT 14:08
PROVIDERS: ATTEND Family Medicine
DX: R60.0 Localized edema (principal)
CPT/HCPCS: 93970

== ENCOUNTER 2020-12-02 09:29 | Outpatient (CLI) | payer BC | END 2020-12-02 09:30 | disposition home or self-care (01) | LOC: BICCT 09:29 | PROVIDERS: ATTEND Internal Medicine Hematology & Oncology | DX: C91.10 Chronic lymphocytic leukemia of B-cell type not having achieved remission (principal); R59.1 Generalized enlarged lymph nodes; R59.0 Localized enlarged lymph nodes; K76.9 Liver disease, unspecified; N28.1 Cyst of kidney, acquired; K76.89 Other specified diseases of liver | CPT/HCPCS: 71260; 74177 ==

== ENCOUNTER 2021-07-23 13:14 | Observation (INO) | payer BC ==
[2021-07-23 13:59] LABS: #Lymphocytes 0.8 thou/uL (1.20-3.40); #Monocytes 0.4 thou/uL (0.11-0.59); #Neutrophils 1.8 thou/uL (1.40-6.50); %Basophils 0.2 % (0.0-1.0); %Eosinophils 0.1 % (0.0-10.0); %Lymphocytes 25.9 % (21.0-51.0); %Neutrophils 60.9 % (42.0-75.0); Hemoglobin 13.2 g/dL (12.0-16.0); Mean Corpuscular Hemoglobin 29.2 pg (27.0-31.0); Mean Corpuscular Volume 83.4 fL (78.0-98.0); Mean Platelet Volume 6.6 fL (7.4-10.4); Platelet Count 228 thou/uL (130-400); RBC Distribution Width 12.9 % (11.5-14.5); Red Blood Cell (RBC) Count 4.52 mill/uL (4.20-5.40); White Blood Cell (WBC) Count 2.9 thou/uL (4.8-10.8)
[2021-07-23 14:30] LABS: ALT (SGPT) 78 U/L (8-55); AST (SGOT) 44 U/L (5-34); Albumin 4.7 g/dL (3.5-5.0); Alkaline Phosphatase 70 U/L (40-110); Anion Gap 15 mmol/L (10-20); BUN (Urea Nitrogen) 9 mg/dL (9.8-20.1); Calc. Creatinine Clearance 0 mL/min (70-130); Calcium 10.1 mg/dL (7.8-10.44); Carbon Dioxide 26 mmol/L (22-29); Chloride 104 mmol/L (98-107); Globulin 3.3 g/dL (2.4-3.5); Glucose 115 mg/dL (70-105); Lipase 46 U/L (8-78); Potassium 3.9 mmol/L (3.5-5.1); Sodium 141 mmol/L (136-145)
[2021-07-23 16:38] VITALS: BMI 27.4
[2021-07-23 17:43] LABS: Troponin I Less than 0.010 ng/mL (< 0.028)
[2021-07-23] MEDS ORDERED: Ondansetron ODT 4 MG TAB PO PRN (18:20)
[2021-07-23] MEDS ORDERED: Ondansetron PF 4 MG/2 ML Vial IVP PRN (18:20)
[2021-07-23] MEDS ORDERED: Acetaminophen 325 MG TAB PO PRN (18:20)
[2021-07-23] MEDS ORDERED: hydrALAZINE 20 MG/ML VIAL SLOW IVP PRN (18:22)
[2021-07-23] MEDS ORDERED: Nitroglycerin 0.4 MG TAB (25 Tab Bottle) SL PRN (18:22)
[2021-07-23] MEDS ORDERED: Electrolyte Replacement Protocol 1 EACH FS SCH (18:30)
[2021-07-23 20:06] LABS: Troponin I Less than 0.010 ng/mL (< 0.028)
[2021-07-23] MEDS ORDERED: diphenhydrAMINE 25 MG CAP PO SCH (21:00)
[2021-07-23] MEDS ORDERED: Rosuvastatin 20 MG TAB PO SCH (21:00)
[2021-07-23] MEDS ORDERED: Amlodipine 10 MG TAB PO SCH (21:00)
[2021-07-24 06:05] LABS: Anion Gap 15 mmol/L (10-20); BUN (Urea Nitrogen) 11 mg/dL (9.8-20.1); Calc. Creatinine Clearance 100 mL/min (70-130); Calcium 9.7 mg/dL (7.8-10.44); Carbon Dioxide 25 mmol/L (22-29); Cardiac Risk 5.4 (Less than 4.5); Chloride 104 mmol/L (98-107); Cholesterol 188 mg/dl (< 200 Desired); Glucose 134 mg/dL (70-105); HDL Cholesterol 35 mg/dL (>60 Neg Risk); Magnesium 1.8 mg/dL (1.6-2.6); Potassium 3.8 mmol/L (3.5-5.1); Sodium 140 mmol/L (136-145); Triglycerides 633 mg/dL (Less than 150)
[2021-07-24] MEDS ORDERED: Magnesium 2 GM/50 ML(in water) 2 GM in Premix Bag 1 BAG IVPB SCH (06:30)
[2021-07-24 08:26] LABS: Band 2 % (5-11); Hemoglobin 12.9 g/dL (12.0-16.0); Lymphocytes 30 % (21-51); MDiff Complete? YES; Mean Corpuscular HGB CONC 35.6 g/dL (32.0-36.0); Mean Corpuscular Hemoglobin 29.9 pg (27.0-31.0); Mean Corpuscular Volume 83.8 fL (78.0-98.0); Mean Platelet Volume 6.5 fL (7.4-10.4); Monocytes 18 % (0-10); Neutrophil 38 % (42-75); Platelet Count 209 thou/uL (130-400); Platelet Morphology Comment Appears Adequate; Polychromasia SLIGHT = 2-3 cells (100X) (0-2/hpf); RBC Distribution Width 12.9 % (11.5-14.5); Reactive Lymphocytes 12 % (0-10); Red Blood Cell (RBC) Count 4.33 mill/uL (4.20-5.40)
[2021-07-24] MEDS ORDERED: ADENOSINE 60 MG/20 ML VIAL ONE (08:40)
[2021-07-24] MEDS ORDERED: Aspirin Chewable 81 MG TAB PO SCH (09:00)
[2021-07-24] MEDS ORDERED: Floranex 1 GM Packet PO SCH (09:00)
[2021-07-24] MEDS ORDERED: Pantoprazole 40 MG VIAL IVP SCH (09:00)
[2021-07-24 11:46] VITALS: TEMP 97.8
[2021-07-24 13:29] LABS: SARS-CoV-2 PCR by NAA Not Detected (NotDetected)
[2021-07-24 15:44] VITALS: BP 109/71
== END 2021-07-24 17:10 | disposition home or self-care (01) ==
LOC: ERS 13:14 → ERHOLD 15:54 → 2SW 18:24
PROVIDERS: ADMIT Internal Medicine; ATTEND Internal Medicine
DX: R07.2 Precordial pain (principal); E78.5 Hyperlipidemia, unspecified; K21.9 Gastro-esophageal reflux disease without esophagitis; C91.10 Chronic lymphocytic leukemia of B-cell type not having achieved remission; I13.10 Hypertensive heart and chronic kidney disease without heart failure, with stage 1 through stage 4 chronic kidney disease, or unspecified chronic kidney disease; N18.2 Chronic kidney disease, stage 2 (mild); R74.01 Elevation of levels of liver transaminase levels; I08.1 Rheumatic disorders of both mitral and tricuspid valves; Z87.891 Personal history of nicotine dependence; Z79.899 Other long term (current) drug therapy; Z88.8 Allergy status to other drugs, medicaments and biological substances; Z91.048 Other nonmedicinal substance allergy status; Z20.822 Contact with and (suspected) exposure to COVID-19
CPT/HCPCS: 36415; 71045; 78452; 80048; 80053; 80061; 83690; 83735; 83880; 84443; 84484; 85025; 85379; 93005; 93017; 93306; 94760; 96374; 96375; A9500; C9113; G0378; J0153; J3475; U0003; U0005

== ENCOUNTER 2023-09-20 13:36 | Outpatient (CLI) | payer BC | END 2023-09-20 13:37 | disposition home or self-care (01) | LOC: SCSRAD 13:36 | PROVIDERS: ATTEND Internal Medicine Hematology & Oncology | DX: C91.10 Chronic lymphocytic leukemia of B-cell type not having achieved remission (principal); D70.8 Other neutropenia; R30.0 Dysuria; R59.1 Generalized enlarged lymph nodes | CPT/HCPCS: 71046 ==

== ENCOUNTER 2024-03-25 12:23 | Outpatient (CLI) | payer BC | END 2024-03-25 12:24 | disposition home or self-care (01) | LOC: BICCT 12:23 | PROVIDERS: ATTEND Internal Medicine Hematology & Oncology | DX: C91.10 Chronic lymphocytic leukemia of B-cell type not having achieved remission (principal); D70.8 Other neutropenia; R30.0 Dysuria; R59.0 Localized enlarged lymph nodes; I31.39 Other pericardial effusion (noninflammatory); R91.8 Other nonspecific abnormal finding of lung field | CPT/HCPCS: 70491; 71260; 74177; Q9967 ==

== ENCOUNTER 2024-04-16 09:57 | Outpatient (CLI) | payer BC | END 2024-04-16 09:58 | disposition home or self-care (01) | LOC: BICMAMMO 09:57 | PROVIDERS: ATTEND Internal Medicine Hematology & Oncology | DX: Z12.31 Encounter for screening mammogram for malignant neoplasm of breast (principal) | CPT/HCPCS: 77063; 77067 ==

== ENCOUNTER → 2024-10-09 | Day surgery (SDC) | payer BC ==
[~2024-10-09] MED LIST changes: -Iopamidol 370 76% 100 ML VIAL ONE; +Lidocaine 1% w/Epinephrine 1:100K 20 ML VIAL ONE; +Sodium Bicarbonate 2.5 MEQ/5 ML SDV ONE
[2024-10-09 08:57] LABS: #Basophils 0.03 10x3/uL (0.0-0.2); #Eosinophils 0.05 10x3/uL (0.0-0.7); #Monocytes 0.40 10x3/uL (0.11-0.59); #Neutrophils 1.71 10x3/uL (1.40-6.50); %Basophils 1.0 % (0.0-1.0); %Eosinophils 1.7 % (0.0-10.0); %Lymphocytes 22.9 % (21.0-51.0); %Monocytes 13.5 % (0.0-10.0); %Neutrophils 57.5 % (42.0-75.0); Hematocrit 39.3 % (36.0-47.0); Hemoglobin 12.7 g/dL (12.0-16.0); Mean Corpuscular Hemoglobin 26.5 pg (27.0-31.0); Mean Corpuscular Volume 81.9 fL (78.0-98.0); Platelet Count 227 10x3/uL (130-400); Red Blood Cell (RBC) Count 4.80 mill/uL (4.20-5.40); White Blood Cell (WBC) Count 2.97 10x3/uL (4.8-10.8)
[2024-10-09 09:17] LABS: INR-International Normal Ratio 1.0; PTT 26.8 sec (22.9-36.1); Prothrombin Time 12.8 sec (12.0-14.7)
== END ==
LOC: CT 08:26
PROVIDERS: ATTEND Internal Medicine Hematology & Oncology
PROC: 07DR3ZX Extraction of Iliac Bone Marrow, Percutaneous Approach, Diagnostic (ICD-10-PCS; principal; 2024-10-09)
DX: C91.10 Chronic lymphocytic leukemia of B-cell type not having achieved remission (principal); D70.8 Other neutropenia; D80.1 Nonfamilial hypogammaglobulinemia; I10 Essential (primary) hypertension; Z87.891 Personal history of nicotine dependence; Z90.710 Acquired absence of both cervix and uterus; Z88.8 Allergy status to other drugs, medicaments and biological substances; Z91.048 Other nonmedicinal substance allergy status
CPT/HCPCS: 36000; 36415; 38222; 77002; 77012; 85025; 85097; 85610; 85730; 88184; 88237; 88305; 88311; 88313; 99152; J1642; J2250; J3010

== ENCOUNTER 2024-10-16 08:49 | Outpatient (CLI) | payer BC ==
[2024-10-16] MEDS ORDERED: Iopamidol 370 76% 100 ML VIAL ONE (12:15)
== END 2024-10-16 08:50 | disposition home or self-care (01) ==
LOC: CT 08:49
PROVIDERS: ATTEND Internal Medicine Hematology & Oncology
DX: C91.10 Chronic lymphocytic leukemia of B-cell type not having achieved remission (principal); D70.8 Other neutropenia; D80.1 Nonfamilial hypogammaglobulinemia; R59.1 Generalized enlarged lymph nodes; R30.0 Dysuria
CPT/HCPCS: 70491; 71260; 74177; Q9967